=== PATIENT | male | born 1985 | race Caucasian/White ===

== ENCOUNTER 2018-01-25 12:03 | Emergency (ER) | payer SELFPAY ==
[~2018-01-25] VITALS: Ht 185.4 cm; Wt 95.0 kg
[2018-01-25 12:13] VITALS: BP 154/83
== END 2018-01-25 17:29 | disposition left against medical advice (07) ==
LOC: ER 12:03
DX: M25.532 Pain in left wrist (principal); M25.522 Pain in left elbow; Z53.21 Procedure and treatment not carried out due to patient leaving prior to being seen by health care provider